=== PATIENT | male | born 1990 | race Hispanic/Latino ===

== ENCOUNTER 2022-08-18 03:04 | Emergency (ER) | payer OTHER ==
[~2022-08-18] VITALS: Ht 175.3 cm; Wt 104.3 kg
[2022-08-18 03:23] VITALS: BP 134/86
[2022-08-18] MEDS ORDERED: ALBU90AE2 IH (03:33)
== END 2022-08-18 04:11 | disposition home or self-care (01) ==
LOC: EDH 03:04
DX: J45.909 Unspecified asthma, uncomplicated (principal); F41.9 Anxiety disorder, unspecified; Z20.822 Contact with and (suspected) exposure to COVID-19
CPT/HCPCS: 99283; 87635; 87880; 87804 ×2; C9803